=== PATIENT | male | born 1960 | race Caucasian/White ===

== ENCOUNTER 2018-02-08 20:57 | Emergency (ER) | payer OTHER ==
[~2018-02-08] VITALS: Ht 182.9 cm; Wt 88.5 kg
[~2018-02-08 20:57] MED LIST: ACCUNEB SO1.25 MG/1; ALLEGRA30 MG; ASPIRIN EC81 M1; COUMADIN 10MG T10 M1; DALIRESP500 MCG; DULERA 100 MCG/13 GM; FLEXERIL PO; FLUOCINONI0.05 %/30; IBUPROFEN 200200 M1 PO; NORCO 5-325 TA1 EACH PO; NUCYNTA ER100 MG; PERCOCET 5-3251 EACH PO; PRAVASTATIN SOD10 MG; PREDNISONE 20 M20 M1 PO; PROAIR HFA8.5 GM; SPIRIVA; VICODIN 5-5001 EACH PO; ZPAK PO
[2018-02-08] MEDS ORDERED: XARELTO10 MG (21:18)
[2018-02-08] MEDS ORDERED: NORCO 7.5-3251 EACH PO (21:58)
[2018-02-08] MEDS ORDERED: DOXYCYCLINE 10100 MG PO (21:58)
[2018-02-08 22:20] VITALS: BP 137/81
== END 2018-02-08 22:21 | disposition home or self-care (01) ==
LOC: M.ERS 20:57
DX: F17.210 Nicotine dependence, cigarettes, uncomplicated (principal); L03.114 Cellulitis of left upper limb

== ENCOUNTER → 2018-10-19 | Outpatient (CLI) | payer OTHER, MEDICARE ==
[~2018-10-19] MED LIST changes: +DOXYCYCLINE 10100 MG PO; +NORCO 7.5-3251 EACH PO; +XARELTO10 MG
== END ==
LOC: M.RAD 14:07
DX: J98.4 Other disorders of lung (principal); Z98.890 Other specified postprocedural states